=== PATIENT | male | born 1955 | race Two or more races ===

== ENCOUNTER 2018-05-10 19:55 | Emergency (ER) | payer BC ==
[~2018-05-10] VITALS: Ht 167.6 cm; Wt 79.4 kg
[2018-05-10 20:09] VITALS: BP 129/63
[2018-05-10 20:37] LABS: Basophils # (auto) 0.1 uL; Basophils % (auto) 1.1 % (0.0-2.0); Eosinophils # (auto) 0.1 uL; Eosinophils % (auto) 2.1 % (0.0-7.0); Hematocrit 41.9 % (41.0-53.0); Hemoglobin 14.5 g/dL (13.5-17.5); Lymphocytes # (auto) 1.2 uL; Lymphocytes % (auto) 16.7 % (10.0-50.0); Mean Corpuscular Hemoglobin 30.2 pg (28.0-32.0); Mean Corpuscular Hgb Conc. 34.6 g/dL (32.0-36.0); Mean Corpuscular Volume 87.3 fL (80.0-100.0); Monocytes # (auto) 0.5 uL; Monocytes % (auto) 7.5 % (0.0-12.0); Neutrophils # (auto) 5.1 uL; Neutrophils % (auto) 72.6 % (37.0-80.0); Platelet Count (auto) 281 10^3/uL (140-450); Red Blood Cells 4.79 10^6/uL (4.5-5.90); Red Cell Distribution Width 16.9 % (11.8-14.3)
[2018-05-10 21:20] LABS: Potassium 3.9 mmol/L (3.5-5.1)
[2018-05-10 21:26] LABS: Bilirubin, Total 0.6 mg/dL (0.2-1.0)
[2018-05-10 21:27] LABS: Total Protein 7.6 g/dL (6.4-8.2)
== END 2018-05-11 07:45 | disposition left against medical advice (07) ==
LOC: ER 19:59
DX: H53.8 Other visual disturbances (principal); Z53.21 Procedure and treatment not carried out due to patient leaving prior to being seen by health care provider
CPT/HCPCS: 36415; 70450; 80053; 84484; 85025; 93005

== ENCOUNTER 2019-01-27 13:01 | Inpatient (IN) | payer BC ==
[~2019-01-27] VITALS: Ht 167.6 cm; Wt 64.0 kg
[2019-01-27 13:29] LABS: Basophils # (auto) 0.1 uL; Basophils % (auto) 1.3 % (0.0-2.0); Eosinophils # (auto) 0.1 uL; Eosinophils % (auto) 1.8 % (0.0-7.0); Hematocrit 40.7 % (41.0-53.0); Hemoglobin 14.2 g/dL (13.5-17.5); Lymphocytes # (auto) 1.2 uL; Lymphocytes % (auto) 20.1 % (10.0-50.0); Mean Corpuscular Hemoglobin 31.3 pg (28.0-32.0); Mean Corpuscular Hgb Conc. 34.8 g/dL (32.0-36.0); Monocytes # (auto) 0.4 uL; Monocytes % (auto) 6.8 % (0.0-12.0); Neutrophils # (auto) 4.1 uL; Nucleated Red Blood Cells % 0.1 %; Platelet Count (auto) 247 10^3/uL (140-450); Red Blood Cells 4.53 10^6/uL (4.5-5.90); Red Cell Distribution Width 15.7 % (11.8-14.3); White Blood Cell 5.8 10^3/uL (4.4-10.8)
[2019-01-27 13:42] LABS: Albumin 4.5 g/dL (3.4-5.0); Calcium 9.6 mg/dL (8.5-10.1); Potassium 4.4 mmol/L (3.5-5.1)
[2019-01-27 13:45] LABS: BUN/Creatinine Ratio 13.5; INR 0.94 (0.9-1.15); Partial Thromboplastin Time 28.8 sec (23.64-32.05); Total Protein 8.3 g/dL (6.4-8.2)
[2019-01-27] MEDS ORDERED: MORPHINE SULF INJ 2 MG/ML SYRINGE 1ML IV PRN (18:45)
[2019-01-27] MEDS ORDERED: NITROGLYCERIN 0.4 MG SL TAB SL PRN (18:45)
--- NOTE | 2019-01-27 21:00 | NUR ---
Telemetry admit from ER EDINJUAN admitted to Telemetry unit after SBAR received. Patient oriented to LAURO NAVARRO, RN primary RN, unit, room, bed, and unit policies regarding patient care and visiting hours. Patient now on continuous telemetry monitoring, tele box # [id number] and telemetry reading on arrival to unit is sinus rhythm. Patient weighed by bed scale and encouraged to call if they need something. All questions and concerns addressed, patient verbalized understanding. Note: bed alarm in place for patient safety due to history of recent falls.
--- NOTE | 2019-01-27 21:15 | NUR ---
Spoke with on-call hospitalist Nestor Harrington NP. New orders received; will follow through. Addendum: 01/27/19 at 2334 by LAURO NAVARRO RN RN incorrect time. Spoke with Hospitalist at [phone].
--- NOTE | 2019-01-27 21:30 | NUR ---
HTN SWITCH COUPLER obtained a BP of 198/85, heart rate 63. Reassessed and Bp is 163/73, heart rate 58. Will notify hospitalist.
[2019-01-27 22:00] VITALS: BP 198/85
[2019-01-27] MEDS ORDERED: ATORVASTATIN 20 MG TAB PO SCH (22:00)
--- NOTE | 2019-01-27 22:00 | NUR ---
Paged on-call hospitalist due to patient request for sleep aid. Awaiting call back.
[2019-01-27] MEDS ORDERED: ESCI20TA51 PO (22:24)
[2019-01-27] MEDS ORDERED: ATOR1TAB PO (22:24)
[2019-01-27] MEDS ORDERED: LISI40TA PO (22:24)
[2019-01-27] MEDS ORDERED: LEVO88TA4 PO (22:24)
[2019-01-27] MEDS ORDERED: AMLO5TAB15 PO (22:24)
[2019-01-27] MEDS ORDERED: CLOP75TA41 PO (22:24)
[2019-01-27] MEDS ORDERED: TEMAZEPAM 15 MG CAP PO ONE (22:30)
[2019-01-27] MEDS: ATORVASTATIN 20 MG TAB PO SCH (22:38)
[2019-01-28] VITALS (7 sets, daily range): BP systolic 128–180; BP diastolic 61–85
[2019-01-28 05:50] LABS: Basophils # (auto) 0.1 uL; Basophils % (auto) 1.3 % (0.0-2.0); Eosinophils # (auto) 0.1 uL; Eosinophils % (auto) 2.3 % (0.0-7.0); Hematocrit 39.3 % (41.0-53.0); Hemoglobin 13.7 g/dL (13.5-17.5); Lymphocytes # (auto) 1.3 uL; Lymphocytes % (auto) 22.1 % (10.0-50.0); Mean Corpuscular Hemoglobin 31.1 pg (28.0-32.0); Mean Corpuscular Hgb Conc. 34.7 g/dL (32.0-36.0); Mean Corpuscular Volume 89.5 fL (80.0-100.0); Monocytes # (auto) 0.5 uL; Neutrophils % (auto) 66.3 % (37.0-80.0); Nucleated Red Blood Cells % 0.1 %; Platelet Count (auto) 223 10^3/uL (140-450); Red Blood Cells 4.39 10^6/uL (4.5-5.90); Red Cell Distribution Width 15.5 % (11.8-14.3); White Blood Cell 6.1 10^3/uL (4.4-10.8)
[2019-01-28 06:08] LABS: Albumin 3.7 g/dL (3.4-5.0); BUN/Creatinine Ratio 14.4; Calcium 8.7 mg/dL (8.5-10.1); Magnesium 2.3 mg/dL (1.6-2.6); Potassium 3.7 mmol/L (3.5-5.1)
[2019-01-28 06:11] LABS: Cholesterol 139 mg/dL (< 200); Triglycerides 178 mg/dL (< 150)
[2019-01-28 06:13] LABS: HDL Cholesterol 38 mg/dL (40-59); LDL Cholesterol 90 mg/dL (< 100)
[2019-01-28 06:29] LABS: Phosphorus 2.8 mg/dL (2.5-4.90)
[2019-01-28 06:36] LABS: INR 0.95 (0.9-1.15); Partial Thromboplastin Time 28.7 sec (23.64-32.05)
[2019-01-28] MEDS: LEVOTHYROXINE SODIUM 88 MCG TAB PO SCH (06:43)
--- NOTE | 2019-01-28 07:30 | NUR ---
Opening Shift Note Assumed care of patient, awake and alert. No S/S of distress/SOB or pain. Instructed on POC and to call for assist PRN, will continue to monitor for changes Q1hr and PRN.
[2019-01-28] MEDS ORDERED: amLODIPine BESYLATE 5 MG TAB PO SCH (10:00)
[2019-01-28] MEDS ORDERED: ASPirin 81 mg TAB PO SCH (10:00)
--- NOTE | 2019-01-28 10:05 | NUR ---
Spoke with pt's nurse regarding BP of 162/92 in supine at rest. Pt is oriented to person and is able to state he is in the hospital but unsure of what city he is in. He also reports it is March and is unable to give the year, despite cues.
[2019-01-28] MEDS: CLOPIDOGREL BISULFATE 75 MG TAB PO SCH (10:51)
[2019-01-28] MEDS: CITALOPRAM HYDROBR 20 MG TAB PO SCH (10:51)
[2019-01-28] MEDS: LISINOPRIL 20 MG TAB PO SCH (10:51)
[2019-01-28] MEDS: ENOXAPARIN SOD 40 MG/0.4 ML SYRINGE SC SCH (10:52)
[2019-01-28] MEDS ORDERED: cloNIDine HCL 0.1 MG TAB PO PRN (11:00)
--- NOTE | 2019-01-28 12:00 | NUR ---
patient ambulating in the ruiz with family. Patient now has his cane from home at bedside. Gait disturbance noted. Balance and strength remain intact.
[2019-01-28] MEDS: amLODIPine BESYLATE 5 MG TAB PO SCH (12:01)
--- NOTE | 2019-01-28 12:48 | NUR ---
SWALLOW EVALUATED WITH FAMILY PRESENT. PATIENT RELAYED EVENTS LEADING TO THIS HOSPITALIZATION. PATIENT HAS SOME SLURRED SPEECH AND RIGHT SIDE WEAKNESS. FAMILY ADVISED TO ENGAGE PATIENT IN CONVERSATION TO IMPROVE COGNITION. PATIENT ABLE TO TOLERATE REGULAR TEXTURE WITH THIN LIQUIDS WITH NO OVERT SIGNS OR SYMPTOMS OF ASPIRATION. PATIENT ADVISED TO TAKE SMALL BITES AND SIPS, SLOW RATE ON PO INTAKE. PATIENT DEMONSTRATED ABILITY TO CUT MEAT WITH KNIFE AND FORK AND FEED SELF. NURSING NOTIFIED.
[2019-01-28] MEDS: hydrALAZINE HCL 25 MG TAB PO SCH ×2 (14:18→22:09)
--- NOTE | 2019-01-28 19:15 | NUR ---
OPENING SHIFT NOTE Assumed care of patient who is sitting at the bedside. Patient is A&Ox3, currently on RA with no s/s of distress or SOB. Denies pain at this time. No facial drooping noted at this time. Patient is ambulatory, however, unsteady on his feet; requires standby assist for safety. POC discussed with patient and all questions answered. Bed is in low locked position and call light is within reach. Will continue to monitor for changes PRN.
[2019-01-28] MEDS: ATORVASTATIN 20 MG TAB PO SCH (22:09)
[2019-01-29 05:36] VITALS: BP_SYST 140; BP_SYST 155; BP_DIAS 77; BP_DIAS 82
[2019-01-29] MEDS: hydrALAZINE HCL 25 MG TAB PO SCH ×3 (06:01→21:39)
[2019-01-29] MEDS: LEVOTHYROXINE SODIUM 88 MCG TAB PO SCH (06:01)
[2019-01-29 06:29] LABS: Basophils # (auto) 0.1 uL; Eosinophils # (auto) 0.2 uL; Hematocrit 38.6 % (41.0-53.0); Hemoglobin 13.5 g/dL (13.5-17.5); Lymphocytes # (auto) 1.5 uL; Lymphocytes % (auto) 26.7 % (10.0-50.0); Mean Corpuscular Hemoglobin 31.5 pg (28.0-32.0); Mean Corpuscular Hgb Conc. 35.1 g/dL (32.0-36.0); Mean Corpuscular Volume 89.7 fL (80.0-100.0); Monocytes # (auto) 0.5 uL; Monocytes % (auto) 8.5 % (0.0-12.0); Neutrophils # (auto) 3.3 uL; Neutrophils % (auto) 60.8 % (37.0-80.0); Nucleated Red Blood Cells % 0.1 %; Platelet Count (auto) 203 10^3/uL (140-450); Red Cell Distribution Width 15.5 % (11.8-14.3); White Blood Cell 5.4 10^3/uL (4.4-10.8)
[2019-01-29 06:53] LABS: Anion Gap 8 (5-15); Blood Urea Nitrogen 19 mg/dL (7-18); Calcium 9.1 mg/dL (8.5-10.1); Carbon Dioxide 26 mmol/L (21-32); Chloride 108 mmol/L (98-107); Glucose 120 mg/dL (74-106); Potassium 3.8 mmol/L (3.5-5.1); Sodium 142 mmol/L (136-145)
[2019-01-29 06:58] LABS: BUN/Creatinine Ratio 20.7; GFR African American 107 mL/min; GFR Non-African American 88 mL/min
[2019-01-29 08:00] VITALS: BP 139/73
[2019-01-29 09:00] VITALS: BP 139/73
[2019-01-29] MEDS: CITALOPRAM HYDROBR 20 MG TAB PO SCH (10:24)
[2019-01-29] MEDS: amLODIPine BESYLATE 5 MG TAB PO SCH (10:25)
[2019-01-29] MEDS: CLOPIDOGREL BISULFATE 75 MG TAB PO SCH (10:25)
[2019-01-29] MEDS: ENOXAPARIN SOD 40 MG/0.4 ML SYRINGE SC SCH (10:26)
[2019-01-29] MEDS: LISINOPRIL 20 MG TAB PO SCH (10:26)
[2019-01-29 12:55] VITALS: BP 156/72
[2019-01-29] MEDS ORDERED: LORazepam 2MG/ML-1ML VIAL IV PRN (15:30)
[2019-01-29 17:00] VITALS: BP 147/72
--- NOTE | 2019-01-29 19:20 | NUR ---
RECEIVED PATIENT FROM DAY SHIFT RN. PATIENT RESTING IN BED. NO S/S OF DISTRESS NOTED. FAMILY AT BEDSIDE. DENIED ANY PAIN AND DIZZINESS FOR NOW. RIGHT SIDE FACIAL DROPPING NOTED. SPEECH OKAY NOW. POC INSTRUCTED AND ENCOURAGED PATIENT TO CALL FOR ELECTRICIAN HELPER [employer]IVE IF NEEDED. BED IN LOWEST POSITION WITH SIDE RAILS UP X 2. CALL M[place]OZA WITHIN REACH. ALARM ON. CONTINUE TO MONITOR FOR CHANGES Q1H AND PRN.
[2019-01-29] MEDS: ATORVASTATIN 20 MG TAB PO SCH (21:39)
[2019-01-29 22:32] VITALS: BP 141/73
--- NOTE | 2019-01-29 22:43 | NUR ---
REASSESSED BP 149/77, HR 59. CONTINUE TO MONITOR.
--- NOTE | 2019-01-30 00:44 | NUR ---
PATIENT WALKED ON THE HALLWAY WITH CANE. NO S/S OF DISTRESS NOTED. GAIT STEADY. CONTINUE TO MONITOR.
--- NOTE | 2019-01-30 03:23 | NUR ---
PATIENT SLEEPING. NO S/S OF DISTRESS NOTED. CONTINUE CARE.
[2019-01-30 05:36] VITALS: BP 148/81
[2019-01-30] MEDS: hydrALAZINE HCL 25 MG TAB PO SCH ×3 (06:23→22:07)
[2019-01-30] MEDS: LEVOTHYROXINE SODIUM 88 MCG TAB PO SCH (06:23)
--- NOTE | 2019-01-30 06:23 | NUR ---
PATIENT WALKED ON THE HALLWAY WITH CANE. NO S/S OF DISTRESS NOTED. GAIT STEADY. CONTINUE TO MONITOR.
[2019-01-30 06:25] LABS: Basophils # (auto) 0 uL; Basophils % (auto) 0.6 % (0.0-2.0); Eosinophils # (auto) 0.1 uL; Eosinophils % (auto) 2.4 % (0.0-7.0); Hematocrit 37.3 % (41.0-53.0); Hemoglobin 13.3 g/dL (13.5-17.5); Lymphocytes # (auto) 1.4 uL; Lymphocytes % (auto) 22.7 % (10.0-50.0); Mean Corpuscular Hemoglobin 31.8 pg (28.0-32.0); Mean Corpuscular Hgb Conc. 35.5 g/dL (32.0-36.0); Mean Corpuscular Volume 89.7 fL (80.0-100.0); Monocytes # (auto) 0.5 uL; Monocytes % (auto) 8.6 % (0.0-12.0); Neutrophils % (auto) 65.7 % (37.0-80.0); Nucleated Red Blood Cells % 0.1 %; Platelet Count (auto) 210 10^3/uL (140-450); Red Blood Cells 4.16 10^6/uL (4.5-5.90); Red Cell Distribution Width 15.4 % (11.8-14.3); White Blood Cell 6.2 10^3/uL (4.4-10.8)
[2019-01-30 06:26] LABS: Potassium 3.7 mmol/L (3.5-5.1)
[2019-01-30 06:27] LABS: Calcium 8.8 mg/dL (8.5-10.1)
[2019-01-30 06:31] LABS: BUN/Creatinine Ratio 19.6
--- NOTE | 2019-01-30 07:30 | NUR ---
OPENING SHIFT NOTE: PATIENT RESTING IN BED LOW FOWLERS. PATIENT DENIES ANY SOB. PATIENT IN NO S/S OF DISTRESS AT THIS TIME. PATIENT UPDATED ON POC. ALL QUESTIONS ANSWERED. BED IN LOWEST LOCKED POSITION WITH CALL LIGHT WITHIN REACH. WILL CONTINUE CARE.
[2019-01-30 08:00] VITALS: BP 139/73
[2019-01-30 09:04] VITALS: BP 134/72
[2019-01-30 09:22] LABS: Folate (Folic Acid) > 24.00 ng/mL (5.38-24)
[2019-01-30] MEDS: LISINOPRIL 20 MG TAB PO SCH (09:30)
[2019-01-30] MEDS: ASPirin-EC 81 mg tab PO SCH (09:30)
[2019-01-30] MEDS: ENOXAPARIN SOD 40 MG/0.4 ML SYRINGE SC SCH (09:31)
[2019-01-30] MEDS: CITALOPRAM HYDROBR 20 MG TAB PO SCH (09:31)
[2019-01-30] MEDS: amLODIPine BESYLATE 5 MG TAB PO SCH (09:31)
--- NOTE | 2019-01-30 10:30 | NUR ---
EEG COMPLETED AT BEDSIDE. BAKARI YOU.
[2019-01-30 13:10] VITALS: BP 151/76
--- NOTE | 2019-01-30 16:27 | NUR ---
Assessment Pt is a 63 yr old alert and oriented male. Pt lives alone and has 3 daughters that help with cooking, cleaning, etc. His daughter, Marla Mathew, was bedside, and her contact info is [phone]. Prior to admit, pt is ambulatory, and independent with ADL's. Pt uses a shower chair and cane in the home. Pt has a history with strokes and is a fall risk. Pt states that he uses anti-depressant that work well for him. Pt receives income. Pt is currently working on paperwork for advanced directive. SW requested a copy for the hospital when finished. Pt's family will be able to transport home upon d/c. No needs or concerns expressed. Addendum: 01/30/19 at 1632 by STAS CLARK Amended: Links added.
[2019-01-30 17:10] VITALS: BP 141/80
--- NOTE | 2019-01-30 18:30 | NUR ---
Caroline DOVE AT BEDSIDE. WILL CONTINUE CARE.
[2019-01-30] MEDS ORDERED: AML5T PO (18:39)
--- NOTE | 2019-01-30 19:35 | NUR ---
Opening Shift Note Assumed care of patient, awake and alert. No S/S of distress/SOB or pain. Patient out of bed sitting on chair comfortably. Bed locked in lowest position, side rails upx2, call light within reach. Instructed on POC and to call for assist PRN, will continue to monitor for changes Q1hr and PRN.
[2019-01-30] MEDS ORDERED: ASP81EC PO (19:42)
[2019-01-30 21:56] VITALS: BP 141/88
[2019-01-30] MEDS: FAMOTIDINE 20 MG TAB PO SCH (22:07)
[2019-01-30] MEDS: ATORVASTATIN 20 MG TAB PO SCH (22:07)
[2019-01-31 05:11] LABS: Basophils # (auto) 0.1 uL; Basophils % (auto) 1.3 % (0.0-2.0); Eosinophils # (auto) 0.1 uL; Eosinophils % (auto) 2.3 % (0.0-7.0); Hematocrit 38.7 % (41.0-53.0); Hemoglobin 13.5 g/dL (13.5-17.5); Lymphocytes # (auto) 1.3 uL; Lymphocytes % (auto) 21.2 % (10.0-50.0); Mean Corpuscular Hemoglobin 31.6 pg (28.0-32.0); Mean Corpuscular Hgb Conc. 34.8 g/dL (32.0-36.0); Mean Corpuscular Volume 90.9 fL (80.0-100.0); Monocytes # (auto) 0.5 uL; Monocytes % (auto) 8.1 % (0.0-12.0); Neutrophils % (auto) 67.1 % (37.0-80.0); Nucleated Red Blood Cells % 0.1 %; Platelet Count (auto) 201 10^3/uL (140-450); Red Blood Cells 4.26 10^6/uL (4.5-5.90); Red Cell Distribution Width 15.2 % (11.8-14.3)
[2019-01-31 05:31] VITALS: BP 143/68
[2019-01-31 05:34] LABS: BUN/Creatinine Ratio 20.2; Calcium 8.9 mg/dL (8.5-10.1); Potassium 3.9 mmol/L (3.5-5.1)
[2019-01-31] MEDS: LEVOTHYROXINE SODIUM 88 MCG TAB PO SCH (06:06)
[2019-01-31] MEDS: hydrALAZINE HCL 25 MG TAB PO SCH ×2 (06:06→13:46)
[2019-01-31 09:00] VITALS: BP 153/72
[2019-01-31] MEDS: ENOXAPARIN SOD 40 MG/0.4 ML SYRINGE SC SCH (09:07)
[2019-01-31] MEDS: ASPirin-EC 81 mg tab PO SCH (09:08)
[2019-01-31] MEDS: LISINOPRIL 20 MG TAB PO SCH (09:09)
[2019-01-31] MEDS: CITALOPRAM HYDROBR 20 MG TAB PO SCH (09:09)
[2019-01-31] MEDS: FAMOTIDINE 20 MG TAB PO SCH (09:09)
[2019-01-31] MEDS: amLODIPine BESYLATE 5 MG TAB PO SCH (09:09)
--- NOTE | 2019-01-31 11:35 | NUR ---
PT SEEN BY DR. WEBBER PER DR. WEBBER PT CAN GO HOME AFTER MRI, PT WILL FOLLOW UP OUT PATIENT.
[2019-01-31 13:00] VITALS: BP 152/68
[2019-01-31 13:19] VITALS: BP 153/72
--- NOTE | 2019-01-31 13:20 | NUR ---
PT OFF FLOOR FOR MRI
[2019-01-31 13:25] VITALS: BP 153/72
--- NOTE | 2019-01-31 13:33 | NUR ---
SPOKE WITH SHU REFERENCE LIBRARY ASSISTANT, PER SHU PT IS OKAY FOR DISCHARGE [facility] WILL FOLLOW THE PT, PT DID NOT QUALIFY FOR PHYSICAL THERAPY.
--- NOTE | 2019-01-31 13:39 | NUR ---
Discharge planning per consult, patient has orders for home health and pt. Referral faxed to [facility],placed a follow call, and she advised that the home health will be assigned to [facility] and patient does not qualify for PT however he will be referred to outpatient physical therapy to [facility]. Received a call from Lizzie at [facility] and boaz advised they will accept this patient onto services upon discharge. Nurse Mahan was advised of dc plan. Addendum: 01/31/19 at 1345 by SHU SAMSON Amended: Links added.
--- NOTE | 2019-01-31 14:19 | NUR ---
PAGED DR. Neeraj DOVE AND DR. WEBBER FOR MRI RESULT, WAITING FOR CALL BACK.
--- NOTE | 2019-01-31 14:25 | NUR ---
DR. DOVE CALLED, MADE AWARE OF THE MRI RESULT, HE ORDERED TO CALL DR. WEBBER TO RELAY THE RESULT.
--- NOTE | 2019-01-31 14:45 | NUR ---
DR. WEBBER CALLED HE IS AWARE OF THE MRI RESULT AND CLEARED THE PT FOR DISCHARGE. PT TO TAKE ATORVASTATIN AND ASPIRIN ORDERED.
--- NOTE | 2019-01-31 14:50 | NUR ---
CORE MEASURE PT AND DAUGHTER QUEENIE INSTRUCTED TO TAKE ASPIRIN AND ATORVASTATIN ORDERED TO PREVENT STROKE, PT AND QUEENIE VERBALIZED UNDERSTANDING.
--- NOTE | 2019-01-31 15:20 | NUR ---
Discharge instructions given as ordered. Encourage to follow up with DR. GERARD ON FEBRUARY 01 AT 1330PM, INSTRUCTED TO FOLLOW UP WITH CARDIOLOGY AND NEUROLOGY THROUGH PCP as instructed. All questions and concerns addressed. Patient verbalized understanding. Medication reconciliation form completed and copy given to patient. IV removed with catheter intact, pressure dressing applied. Telemetry unit returned to ICU. Patient taken to vehicle via wheelchair with all personal belongings, accompanied by staff and family member. No distress noted at time of departure.
== END 2019-01-31 15:00 | disposition home health service (06) | DRG 64 ==
LOC: ER 13:05 → TELE 13:06 → TELE-WESTW 20:21
PROVIDERS: ADMIT Hospitalist; ATTEND Internal Medicine
DX: I63.9 Cerebral infarction, unspecified (principal); G93.41 Metabolic encephalopathy; G91.2 (Idiopathic) normal pressure hydrocephalus; N17.9 Acute kidney failure, unspecified; E03.9 Hypothyroidism, unspecified; I12.9 Hypertensive chronic kidney disease with stage 1 through stage 4 chronic kidney disease, or unspecified chronic kidney disease; N18.9 Chronic kidney disease, unspecified; I70.0 Atherosclerosis of aorta; Z60.2 Problems related to living alone; W18.39XA Other fall on same level, initial encounter; R29.810 Facial weakness; G30.9 Alzheimer's disease, unspecified; F02.80 Dementia in other diseases classified elsewhere, unspecified severity, without behavioral disturbance, psychotic disturbance, mood disturbance, and anxiety; F01.50 Vascular dementia, unspecified severity, without behavioral disturbance, psychotic disturbance, mood disturbance, and anxiety; E78.5 Hyperlipidemia, unspecified; I67.2 Cerebral atherosclerosis; Z83.3 Family history of diabetes mellitus; Y93.89 Activity, other specified; Y92.89 Other specified places as the place of occurrence of the external cause; Y99.8 Other external cause status; Z82.3 Family history of stroke; Z79.82 Long term (current) use of aspirin; Z79.02 Long term (current) use of antithrombotics/antiplatelets; I69.320 Aphasia following cerebral infarction; Z79.899 Other long term (current) drug therapy
CPT/HCPCS: 36415; 70450; 70551; 71045; 80048; 80053; 80061; 82607; 82746; 82962; 83036; 83735; 84100; 84443; 84484; 85025; 85610; 85730; 92523; 92610; 93005; 93306; 93886; 94761; 95819; 97116; 97163; 97530; G0378